=== PATIENT | male | born 1985 | race Caucasian/White ===

== ENCOUNTER 2018-06-04 02:49 | Emergency (ER) | payer SELFPAY ==
[2018-06-04 06:16] LABS: APPEARANCE,URINE CLEAR; BILIRUBIN,URINE NEGATIVE (NEGATIVE); COLOR,URINE YELLOW; GLUCOSE, URINE NEGATIVE (NEGATIVE); KETONES,URINE NEGATIVE (NEGATIVE); LEUKOCYTE ESTERASE,URINE TRACE (NEGATIVE); NITRITE,URINE NEGATIVE (NEGATIVE); PROTEIN,URINE NEGATIVE (NEGATIVE); URINE SPECIFIC GRAVITY 1.016; UROBILINOGEN,URINE NEGATIVE mg/dL (<2.0)
[2018-06-04 06:38] VITALS: BP 123/81
[2018-06-04] MEDS ORDERED: KETOROLAC TROMETHAMINE INJ/PF 30 MG/1 ML SDV IV ONE (08:30)
[2018-06-04] MEDS ORDERED: NORMAL SALINE 1000 ML 1,000 ML IV ONE (08:30)
--- NOTE | 2018-06-04 08:48 | ER Document Report ---
ED General <ANNA FREIRE - Last Filed: 06/04/18 09:53> - General Mode of Arrival: Ambulatory Information source: Patient TRAVEL OUTSIDE OF THE [place] IN LAST 30 DAYS: No <TIRSO KENNEDY - Last Filed: 06/04/18 10:32> - General Chief Complaint: Back Pain Stated Complaint: SIDE PAIN Time Seen by Provider: 06/04/18 08:10 Notes: 33-year-old male who presents to the emergency department today with complaints of 2-3 weeks of abdominal pain. Patient states 3 weeks ago he was diagnosed with diverticulitis at [facility] and put on Cipro and Flagyl. Patient states at that time he had left lower quadrant abdominal pain. Patient states 2 weeks ago he developed right lower quadrant abdominal pain and 2 days ago he developed left flank pain. Patient states after finishing his prescribed Cipro and Flagyl he saw his PCP who restarted the Cipro and Flagyl thinking that the initial dose did not get rid of the infection. Patient mentions he has a history of IBS. Patient denies any fevers. (TIRSO KENNEDY) - Related Data Allergies/Adverse Reactions: iodine [Iodine] Allergy (Severe, Verified 06/04/18 09:09) Blisters diphenhydramine HCl [From Benadryl] Allergy (Verified 06/04/18 09:09) RASH doxycycline [Doxycycline] Allergy (Verified 06/04/18 09:09) VOMITING Penicillins Allergy (Verified 06/04/18 09:09) "FEELS ITCHY" Sulfa (Sulfonamide Antibiotics) Allergy (Verified 06/04/18 09:09) Past Medical History - General Information source: Patient - Social History Smoking Status: Never Smoker Cigarette use (# per day): No Chew tobacco use (# tins/day): No Frequency of alcohol use: Rare Drug Abuse: None Lives with: Family Family History: Reviewed & Not Pertinent Patient has suicidal ideation: No Patient has homicidal ideation: No - Past Medical History Cardiac Medical History: Reports: Hx Atrial Fibrillation Neurological Medical History: Reports: Hx Migraine, Hx Seizures Renal/ Medical History: Reports: Hx Kidney Stones GI Medical History: Reports: Hx Ulcer Musculoskeletal Medical History: Reports Hx Arthritis Past Surgical History: Reports: Hx Genitourinary Surgery, Hx Urinary Tract Surgery - Immunizations Hx Diphtheria, Pertussis, Tetanus Vaccination: Yes <TIRSO KENNEDY - Last Filed: 06/04/18 10:32> Review of Systems - Review of Systems Constitutional: denies: Fever EENT: No symptoms reported Cardiovascular: No symptoms reported Respiratory: No symptoms reported Gastrointestinal: See HPI, Abdominal pain Genitourinary: See HPI, Flank pain Male Genitourinary: No symptoms reported Musculoskeletal: No symptoms reported Skin: No symptoms reported Hematologic/Lymphatic: No symptoms reported Neurological/Psychological: No symptoms reported -: Yes All other systems reviewed and negative <MARCIAALBERTOTIRSO - Last Filed: 06/04/18 10:32> Physical Exam <ANNA FREIRE - Last Filed: 06/04/18 09:53> <MARCIAALBERTOTIRSO - Last Filed: 06/04/18 10:32> - Vital signs Vitals: Temp Pulse BP Pulse Ox 97.9 F 74 131/85 H 95 06/04/18 03:04 06/04/18 03:04 06/04/18 03:04 06/04/18 03:04 - Notes Notes: Physical Exam: General: Alert, appears well. HEENT: Normocephalic. Atraumatic. PERRL. Extraocular movements intact. Oropharynx clear. Neck: Supple. Non-tender. Respiratory: No respiratory distress. Clear and equal breath sounds bilaterally. Cardiovascular: Regular rate and rhythm. Abdominal: Slight right lower quadrant and left lower quadrant tenderness with palpation.. No distension. Bowel Sounds consistent with IBS. Back: Left lumbar musculature and left flank musculature exquisite tenderness with palpation. No deformity or step off. Extremities: Moves all four extremities. Upper extremities: Normal inspection. Normal ROM. Lower extremities: Normal inspection. No edema. Normal ROM. Neurological: Normal cognition. AAOx4. Normal speech. Psychological: Normal affect. Normal Mood. Skin: Warm. Dry. Normal color. (TIRSO KNENEDY) Course - Laboratory Result Diagrams: 06/04/18 08:45 06/04/18 08:45 - Diagnostic Test Radiology reviewed: Image reviewed, Reports reviewed - Noncontrast CT scan of the abdomen and pelvis shows mid descending colon diverticulitis without abscess or free air. <ANNA FREIRE - Last Filed: 06/04/18 09:53> - Laboratory Result Diagrams: 06/04/18 08:45 06/04/18 08:45 <MARCIA,TIRSO - Last Filed: 06/04/18 10:32> - Vital Signs Vital signs: Temp Pulse Resp BP Pulse Ox 98.1 F 85 123/81 98 06/04/18 06:31 06/04/18 06:31 06/04/18 06:31 06/04/18 06:31 - Laboratory Laboratory results interpreted by me: 06/04/18 06/04/18 05:37 08:45 Sodium 146.5 H Ur Leukocyte Esterase TRACE H Discharge <ANNA FREIRE - Last Filed: 06/04/18 09:53> <MARCIATIRSO - Last Filed: 06/04/18 10:32> - Discharge Clinical Impression: Diverticulitis Condition: Stable Disposition: HOME, SELF-CARE Additional Instructions: Diverticulitis You have been diagnosed as having diverticulitis. This is an inflammation of a small pouch attached to the colon, called a diverticulum. Many of these small pouches can form on the colon as you get older. They are often caused by constipation. When inflamed or infected, symptoms arise -- usually abdominal pain, constipation or diarrhea, fever, and blood in the stool. Severe diverticulitis may require hospitalization. More mild cases are usually treated with antibiotics and clear liquid diet. As you improve, a diet low in residue (one which forms little stool) is prescribed. When you are better, you should eat a high-fiber diet. Stool softeners ( like Metamucil) are usually recommended. Call the doctor or go to the hospital if there is increasing pain, vomiting , high fever, large amounts of blood passed, or if bowel movements cease. Your CT scan showed 1 inflamed diverticulum in the mid descending colon on the left side. There is no abscess or free air. You should continue taking the Cipro and Flagyl that was most recently prescribed. Take Tylenol and ibuprofen for pain as needed. Follow-up with your doctor Friday for recheck and possible referral to the general surgeons. RETURN TO THE EMERGENCY ROOM IF ANY NEW OR WORSENING SYMPTOMS. Scribe Attestation: 06/04/18 08:48 I personally performed the services described in the documentation, reviewed and edited the documentation which was dictated to the scribe in my presence, and it accurately records my words and actions. (TIRSO KENNEDY) Scribe Documentation - Scribe Written by Scribe:: Carisa Jimenez, 06/04/2018 1031 acting as scribe for :: Merline <TIRSO KENNEDY - Last Filed: 06/04/18 10:32>
--- NOTE | 2018-06-04 09:19 | RADIOLOGY REPORT (SQ) ---
EXAM DESCRIPTION: CT LTD RENAL STONE PROTOCOL ON COMPLETED DATE/TIME: 06/04/2018 9:03 am REASON FOR STUDY: Recent diverticulitis,bilat pelvic pain,L flank pa COMPARISON: None. TECHNIQUE: CT scan of the abdomen and pelvis performed without intravenous or oral contrast. Images reviewed with lung, soft tissue, and bone windows. Reconstructed coronal and sagittal MPR images revi ewed. All images stored on PACS. All CT scanners at this facility use dose modulation, iterative reconstruction, and/or weight based d osing when appropriate to reduce radiation dose to as low as reasonably achievable (ALARA). [facility]: Dose Right [facility]: CareDose [facility]: Dose Right [facility]: Teradose 4D [facility]: [employer] RADIATION DOSE: CT Rad equipment meets quality standard of care and radiation dose reduction techniq ues were employed. CTDIvol: 6.7 mGy. DLP: 383 mGy-cm.mGy. LIMITATIONS: None. FINDINGS: Along the mid descending colon, there is a colonic diverticulum with surrounding inflammat ion in the paracolic fat from diverticulitis. No free air. No free fluid. No abscess. Findings we re discussed with Dr. Rick. Remainder of the gastrointestinal tract in the field of view is otherwise unremarkable. No gross bow el wall thickening on these non contrasted images. No dilated loops worrisome for obstruction. LOWER CHEST: No significant findings. No nodules or infiltrates. NON-CONTRASTED LIVER, SPLEEN, ADRENALS: Evaluation limited by lack of IV contrast. No identified sign ificant masses. 1.5 cm cyst in the inferior aspect of the spleen, benign. PANCREAS: No masses. No peripancreatic inflammatory changes. GALLBLADDER: No identified stones by CT criteria. No inflammatory changes to suggest cholecystitis. RIGHT KIDNEY AND URETER: No suspicious masses. Assessment limited by lack of IV contrast. No signif icant calcifications. No hydronephrosis or hydroureter. LEFT KIDNEY AND URETER: No suspicious masses. Assessment limited by lack of IV contrast. No signifi cant calcifications. No hydronephrosis or hydroureter. AORTA AND RETROPERITONEUM: No aneurysm. No retroperitoneal masses or adenopathy. BOWEL AND PERITONEAL CAVITY: As above APPENDIX: Normal. PELVIS, BLADDER, AND ABDOMINAL WALL:No abnormal masses. No free fluid. Bladder normal. BONES: No significant findings. OTHER: No other significant finding. IMPRESSION: Mild diverticular inflammation, mid descending colon. No abscess or free air. Findings discussed with the emergency room attending physician. COMMENT: Quality ID # [id number]: Final reports with documentation of one or more dose reduction techniques (e.g., Automated exposure control, adjustment of the mA and/or kV according to patient size, use of iterative reconstruction technique) TECHNICAL DOCUMENTATION: JOB ID: [id number] [employer]- All Rights Reserved Reading location - IP/workstation name: [email or web address] [email or web address]
[2018-06-04 09:33] LABS: ALANINE AMINOTRANSFERASE 70 U/L (21-72); ALBUMIN 4.4 g/dL (3.5-5.0); ALKALINE PHOSPHATASE 86 U/L (38-126); ANION GAP 13 (5-19); ASPARTATE AMINO TRANSFERASE 44 U/L (17-59); BILIRUBIN,DIRECT 0.2 mg/dL (0.0-0.4); BILIRUBIN,TOTAL 0.5 mg/dL (0.2-1.3); BLOOD UREA NITROGEN 11 mg/dL (7-20); CARBON DIOXIDE 30 mmol/L (22-30); CHLORIDE 104 mmol/L (98-107); CREATINE KINASE 87 U/L (55-170); GLUCOSE 99 mg/dL (75-110); POTASSIUM 4.3 mmol/L (3.6-5.0); SODIUM 146.5 mmol/L (137-145); TOTAL PROTEIN 8.2 g/dL (6.3-8.2)
[2018-06-04 09:43] LABS: ABSOLUTE EOSINOPHILS # (AUTO) 0.3 10^3/uL (0.0-0.6); ABSOLUTE LYMPHOCYTES (AUTO) 2.3 10^3/uL (0.5-4.7); ABSOLUTE MONOCYTES (AUTO) 0.5 10^3/uL (0.1-1.4); ABSOLUTE NEUT (AUTO) 4.3 10^3/uL (1.7-8.2); BASOPHILS % (AUTO) 0.4 % (0-2); EOSINOPHILS % (AUTO) 4.5 % (0-6); HEMATOCRIT 43.6 % (37.9-51.0); HEMOGLOBIN 14.9 g/dL (13.5-17.0); LYMPHOCYTES % (AUTO) 30.9 % (13-45); MEAN CORPUSCULAR HEMOGLOBIN 29.4 pg (27.0-33.4); MEAN CORPUSCULAR HGB CONC 34.3 g/dL (32.0-36.0); MEAN CORPUSCULAR VOLUME 86 fl (80-97); MONOCYTES % (AUTO) 7.1 % (3-13); PLATELET COUNT 210 10^3/uL (150-450); RED BLOOD COUNT 5.07 10^6/uL (4.35-5.55); RED CELL DISTRIBUTION WIDTH 12.9 % (11.5-14.0); SEGMENTED NEUTROPHILS % (AUTO) 57.1 % (42-78); TOTAL CELLS COUNTED % (AUTO) 100 %; WHITE BLOOD COUNT 7.5 10^3/uL (4.0-10.5)
== END 2018-06-04 10:04 | disposition home or self-care (01) ==
LOC: ER 02:49
DX: K57.92 Diverticulitis of intestine, part unspecified, without perforation or abscess without bleeding (principal); M54.9 Dorsalgia, unspecified; R10.9 Unspecified abdominal pain; I48.91 Unspecified atrial fibrillation; Z88.0 Allergy status to penicillin; Z88.2 Allergy status to sulfonamides; Z87.442 Personal history of urinary calculi
CPT/HCPCS: 99284; 96361; 96374; 82550; 85025; 80053; 81001; 76380; J1885; J7030

== ENCOUNTER 2020-01-07 07:55 | Day surgery (SDC) | payer MEDICAID ==
[~2020-01-07 07:55] MED LIST: LIDOCAINE 2% INJ-PF (20 MG/ML) 10 ML AMPUL ONE; PROPOFOL INJ 200 MG/20 ML VIAL IV ONE
[2020-01-07 10:59] VITALS: BP 112/68
--- NOTE | 2020-01-07 11:18 | Operative Report ---
Operative Report DATE OF SURGERY: 01/07/20 Operative Report: The risk, benefits and alternatives of the procedure including the risk of bleeding, perforation requiring surgery have been explained to the patient in detail and informed consent has been obtained. Patient is taken back to the endoscopy suite and placed in left, lateral decubital position. Timeout was called. Propofol medication is administered. Rectal examination is done which did not reveal any masses, tears or fissures. An Olympus videoscope was introduced into the patient's rectum. The scope was then carefully advanced all the way to the cecum. Cecum was identified by the usual anatomical landmarks including the ileocecal valve as well as the appendiceal office. Photodocumentation is obtained. Scope was then sequentially pulled back via the various segments of the colon including the ascending colon, back fracture, transverse colon, splenic flexure, descending colon and finally into the rectosigmoid portions of the colon. Retroflexion maneuver is performed. The risks benefits and alternatives of the procedure explained to the patient in detail and informed consent is obtained.A GIF Olympus video scope was inserted into the patient's mouth and hypopharynx, the esophagus is identified intubated and insufflated ,the scope was then advanced through the esophagus stomach and duodenum, retroflexion maneuver is done the esophagus stomach and first and second portions of the duodenum examined PREOPERATIVE DIAGNOSIS: Epigastric pain. History of previous diverticulitis POSTOPERATIVE DIAGNOSIS: Left side diverticulosis. Random biopsies taken on the right side of the colon. No diverticulitis noted. Internal hemorrhoids. Gastritis status post biopsy rule out Helicobacter pylori OPERATION: Colonoscopy with biopsy. EGD with biopsy SURGEON: JANET SKINNER ANESTHESIA: LMAC TISSUE REMOVED OR ALTERED: As noted above. COMPLICATIONS: None. ESTIMATED BLOOD LOSS: None. INTRAOPERATIVE FINDINGS: As noted above. PROCEDURE: Patient tolerated the procedure well. No immediate postprocedure complications are noted. Patient is discharged in good condition. Discharge date 01/07/2020. Discharge diet: Regular. Discharge activity: Regular. 2 to 3-week follow-up to discuss findings. Patient is instructed to call the office or proceed to the emergency room should there be any further problems or questions. Wait on the pathology.
== END 2020-01-07 10:55 | disposition home or self-care (01) ==
LOC: END 07:55
PROVIDERS: ATTEND Internal Medicine Gastroenterology
DX: K57.30 Diverticulosis of large intestine without perforation or abscess without bleeding (principal); K64.8 Other hemorrhoids; K29.50 Unspecified chronic gastritis without bleeding; I48.91 Unspecified atrial fibrillation; M79.7 Fibromyalgia; Z79.899 Other long term (current) drug therapy; G40.909 Epilepsy, unspecified, not intractable, without status epilepticus; Z88.1 Allergy status to other antibiotic agents; Z09 Encounter for follow-up examination after completed treatment for conditions other than malignant neoplasm; Z87.19 Personal history of other diseases of the digestive system; R06.02 Shortness of breath; D64.9 Anemia, unspecified
CPT/HCPCS: 43239; 45380; 88305 ×2; 00813; J2704; J3490; 813

== ENCOUNTER → 2020-01-21 | Outpatient (CLI) | payer MEDICAID ==
--- NOTE | 2020-01-21 16:03 | RADIOLOGY REPORT (SQ) ---
EXAM DESCRIPTION: U/S THYROID/SFT TISS HD NECK IMAGES COMPLETED DATE/TIME: 01/21/2020 3:13 pm REASON FOR STUDY: R22.1 LOCALIZED SWELLING, MASS AND LUMP, NECK R22.1 LOCALIZED SWELLING, MASS AND LUMP, NECK COMPARISON: None. TECHNIQUE: Dynamic and static whiteside-scale images acquired of the thyroid gland. Selected additional c olor/power Doppler images recorded. All images stored to PACS. LIMITATIONS: None. FINDINGS: RIGHT LOBE: The right lobe of the thyroid gland measures 4.6 x 1.9 x 1.7 cm, normal size. Homogeneous echotexture. No cystic or solid masses. LEFT LOBE: The left lobe of the thyroid gland measures 4.1 x 1.7 x 2.0 cm, normal size. Homogeneous echotexture. No cystic or solid masses. ISTHMUS: The isthmus measures 4.1 mm, normal size. Homogeneous echotexture. No cystic or solid mas ses. OTHER: No other significant finding. IMPRESSION: 1. Examination is unremarkable sonographically. TECHNICAL DOCUMENTATION: JOB ID: [id number] 2010 [employer]- All Rights Reserved Reading location - IP/workstation name: [email or web address]
== END ==
LOC: RAD 14:53
PROVIDERS: ATTEND Otolaryngology
DX: R22.1 Localized swelling, mass and lump, neck (principal)
CPT/HCPCS: 76536

== ENCOUNTER 2020-02-04 09:08 | Emergency (ER) | payer MEDICAID ==
--- NOTE | 2020-02-04 09:50 | EKG REPORT ---
SEVERITY:- NORMAL ECG - SINUS RHYTHM : Confirmed by: Suma Ramirez MD 04-Feb-2020 09:49:53
[2020-02-04] MEDS ORDERED: NORMAL SALINE 1000 ML 1,000 ML IV ONE (09:52)
--- NOTE | 2020-02-04 09:54 | ER Document Report ---
ED GI/ - General Chief Complaint: Abdominal Pain Stated Complaint: RIGHT LOWER ABDOMINAL PAIN Time Seen by Provider: 02/04/20 09:46 Primary Care Provider: NANCY SY MD [Primary Care Provider] - Follow up tomorrow Mode of Arrival: Ambulatory Information source: Patient Notes: Patient presents complaining of right lower quadrant abdominal pain off and on f or the past week that worsened today. Patient denies any nausea or vomiting. Patient does report chronic diarrhea. Patient states he has had some urinary frequency but this is a chronic issue for him as well. Patient reports fever at home of 99.2. TRAVEL OUTSIDE OF THE [place] IN LAST 30 DAYS: No - HPI Patient complains to provider of: Abdominal pain, Diarrhea. No: Vomiting Onset: Last week Timing/Duration: Worse Quality of pain: Achy Severity at maximum: Mild Severity in ED: None Location: RLQ Associated symptoms: Diarrhea, Urinary frequency. denies: Nausea, Urinary hesitancy, Urinary retention, Urinary urgency, Vomiting Exacerbated by: Movement Relieved by: Denies Similar symptoms previously: No Recently seen / treated by doctor: No - Related Data Allergies/Adverse Reactions: povidone-iodine [From Betadine] Allergy (Intermediate, Verified 01/07/20 08:09) ITCHY soap [From Betadine] Allergy (Intermediate, Verified 01/07/20 08:09) ITCHY diphenhydramine HCl [From Benadryl] Allergy (Verified 01/06/20 11:03) RASH doxycycline [Doxycycline] Allergy (Verified 01/06/20 11:03) VOMITING Sulfa (Sulfonamide Antibiotics) Allergy (Verified 01/06/20 11:03) NAUSEA/ VOMITING, STOMACH CRAMPS, ITCHY Home Medications: Nexium, naproxen, Cyclobenaprine, Levatiracetam, Oxypoweder, Amitriptyline Past Medical History - General Information source: Patient - Social History Smoking Status: Never Smoker Frequency of alcohol use: None Drug Abuse: None Occupation: none Family History: Reviewed & Not Pertinent Patient has suicidal ideation: No Patient has homicidal ideation: No - Past Medical History Cardiac Medical History: Reports: Hx Atrial Fibrillation Pulmonary Medical History: Denies: Hx Asthma, Hx Bronchitis, Hx COPD, Hx Pneumonia Neurological Medical History: Reports: Hx Migraine, Hx Seizures. Denies: Hx Cerebrovascular Accident Renal/ Medical History: Reports: Hx Kidney Stones. Denies: Hx Peritoneal Dialysis GI Medical History: Reports: Hx Ulcer Musculoskeletal Medical History: Reports Hx Arthritis Past Surgical History: Reports: Hx Genitourinary Surgery, Hx Urinary Tract Surgery - Immunizations Hx Diphtheria, Pertussis, Tetanus Vaccination: Yes Review of Systems - Review of Systems Constitutional: Fever - Low-grade 99.2. denies: Recent illness EENT: No symptoms reported Cardiovascular: No symptoms reported. denies: Chest pain Respiratory: No symptoms reported Gastrointestinal: Abdominal pain, Diarrhea. denies: Nausea, Vomiting Genitourinary: Frequency. denies: Dysuria, Flank pain, Hematuria Male Genitourinary: No symptoms reported Musculoskeletal: No symptoms reported. denies: Back pain Skin: No symptoms reported Hematologic/Lymphatic: No symptoms reported Neurological/Psychological: No symptoms reported Physical Exam - Vital signs Vitals: Temp Pulse Resp BP Pulse Ox 97.6 F 68 20 132/92 H 99 02/04/20 09:13 02/04/20 09:13 02/04/20 09:13 02/04/20 09:13 02/04/20 09:13 - General General appearance: Appears well, Alert In distress: None - HEENT Head: Normocephalic, Atraumatic Eyes: Normal Conjunctiva: Normal Nasal: Normal Mouth/Lips: Normal Mucous membranes: Normal Pharynx: Normal Neck: Normal, Supple - Respiratory Respiratory status: No respiratory distress Chest status: Nontender Breath sounds: Normal. No: Rales, Rhonchi, Stridor, Wheezing Chest palpation: Normal - Cardiovascular Rhythm: Regular Heart sounds: S1 appreciated, S2 appreciated - Abdominal Inspection: Normal Distension: No distension Bowel sounds: Normal Tenderness: Tender, McBurney's point. No: Villa's sign, Guarding Organomegaly: No organomegaly - Back Back: Normal, Nontender. No: CVA tenderness - Extremities General upper extremity: Normal inspection, Normal strength General lower extremity: Normal inspection, Normal strength - Neurological Neuro grossly intact: Yes Cognition: Normal Maida Coma Scale Eye Opening: Spontaneous Fontana Coma Scale Verbal: Oriented Maida Coma Scale Motor: Obeys Commands Fontana Coma Scale Total: 15 - Psychological Associated symptoms: Normal affect, Normal mood - Skin Skin Temperature: Warm Skin Moisture: Dry Skin Color: Normal Course - Re-evaluation Re-evalutation: 02/04/20 12:38 Patient reports very minimal abdominal tenderness. Patient states that he does have problems with constipation and that his pain worsens whenever he takes medicine to help have bowel movements. Patient reports pain symptoms have been off and on for the past week. Patient without any fever, leukocytosis or vomiting. Appendix was not able to be visualized on CT scan although no infla mmatory findings were noted either. Consulted with Dr. Peter regarding patient presentation, exam findings and diagnostic evaluation. Does not recommend any additional testing at this time. Recommends good return precautions and advises discharge with symptomatic treatment. Discussed plan of care with patient, patient states that pain is very minimal at this time and he is agreeable with this plan. Good return precautions were discussed. Patient presents with abdominal pain without signs of peritonitis or other life-threatening or serious etiology. Patient appears stable for discharge and has been instructed to return immediately if the symptoms worsen in any way. - Vital Signs Vital signs: Temp Pulse Resp BP Pulse Ox 97.8 F 77 16 118/83 99 02/04/20 12:51 02/04/20 12:51 02/04/20 12:51 02/04/20 12:51 02/04/20 12:51 - Laboratory Result Diagrams: 02/04/20 09:43 02/04/20 09:43 Laboratory results interpreted by me: 02/04/20 09:43 ALT 55 H Labs- Entire Visit 02/04/20 02/04/20 02/04/20 09:43 09:43 11:04 WBC 6.6 RBC 4.90 Hgb 14.8 Hct 42.5 MCV 87 MCH 30.2 MCHC 34.8 RDW 12.7 Plt Count 214 Lymph % (Auto) 34.3 Saunders % (Auto) 7.4 Eos % (Auto) 5.5 Baso % (Auto) 0.5 Absolute Neuts (auto) 3.5 Absolute Lymphs (auto) 2.3 Absolute Monos (auto) 0.5 Absolute Eos (auto) 0.4 Absolute Basos (auto) 0.0 Seg Neutrophils % 52.3 Sodium 139.6 Potassium 4.0 Chloride 104 Carbon Dioxide 28 Anion Gap 8 BUN 13 Creatinine 0.97 Est GFR ( Amer) > 60 Est GFR (MDRD) Non-Af > 60 Glucose 100 Calcium 9.0 Total Bilirubin 0.4 Direct Bilirubin 0.2 Neonat Total Bilirubin Not Reportable Neonat Direct Bilirubin Not Reportable Neonat Indirect Bili Not Reportable AST 34 ALT 55 H Alkaline Phosphatase 86 Total Protein 7.9 Albumin 4.4 Urine Color STRAW Urine Appearance CLEAR Urine pH 5.0 Ur Specific [place] 1.053 Urine Protein NEGATIVE Urine Glucose (UA) NEGATIVE Urine Ketones NEGATIVE Urine Blood NEGATIVE Urine Nitrite NEGATIVE Urine Bilirubin NEGATIVE Urine Urobilinogen NEGATIVE Ur Leukocyte Esterase NEGATIVE Urine WBC (Auto) 0 Urine RBC (Auto) 0 Urine Mucus (Auto) RARE Urine Ascorbic Acid NEGATIVE - Diagnostic Test Radiology reviewed: Reports reviewed Discharge - Discharge Clinical Impression: Abdominal pain Qualifiers: Abdominal location: unspecified location Qualified Code(s): R10.9 - Unspecified abdominal pain Condition: Stable Disposition: HOME, SELF-CARE Instructions: Abdominal Pain ([facility]), Antispasmodics ([facility]) Additional Instructions: Return immediately for any new or worsening symptoms: Fever, vomiting, worsening pain, lack of improvement or any concerning new symptoms Followup with your primary care provider, call tomorrow to make a followup appointment Prescriptions: Dicyclomine HCl [Bentyl 20 mg Tablet] 20 mg PO QID PRN #12 tablet PRN Reason: Polyethylene Glycol 3350 [Miralax] 17 gm PO DAILY #119 powder Referrals: NANCY SY MD [Primary Care Provider] - Follow up tomorrow
[2020-02-04 10:00] LABS: ABSOLUTE EOSINOPHILS # (AUTO) 0.4 10^3/uL (0.0-0.6); ABSOLUTE LYMPHOCYTES (AUTO) 2.3 10^3/uL (0.5-4.7); ABSOLUTE MONOCYTES (AUTO) 0.5 10^3/uL (0.1-1.4); ABSOLUTE NEUT (AUTO) 3.5 10^3/uL (1.7-8.2); BASOPHILS % (AUTO) 0.5 % (0-2); EOSINOPHILS % (AUTO) 5.5 % (0-6); HEMATOCRIT 42.5 % (37.9-51.0); HEMOGLOBIN 14.8 g/dL (13.5-17.0); LYMPHOCYTES % (AUTO) 34.3 % (13-45); MEAN CORPUSCULAR HEMOGLOBIN 30.2 pg (27.0-33.4); MEAN CORPUSCULAR HGB CONC 34.8 g/dL (32.0-36.0); MEAN CORPUSCULAR VOLUME 87 fl (80-97); MONOCYTES % (AUTO) 7.4 % (3-13); PLATELET COUNT 214 10^3/uL (150-450); RED CELL DISTRIBUTION WIDTH 12.7 % (11.5-14.0); SEGMENTED NEUTROPHILS % (AUTO) 52.3 % (42-78); TOTAL CELLS COUNTED % (AUTO) 100 %; WHITE BLOOD COUNT 6.6 10^3/uL (4.0-10.5)
[2020-02-04 10:40] LABS: ALBUMIN 4.4 g/dL (3.5-5.0); ALKALINE PHOSPHATASE 86 U/L (38-126); ANION GAP 8 (5-19); ASPARTATE AMINO TRANSFERASE 34 U/L (17-59); BILIRUBIN,DIRECT 0.2 mg/dL (0.0-0.4); BILIRUBIN,TOTAL 0.4 mg/dL (0.2-1.3); BLOOD UREA NITROGEN 13 mg/dL (7-20); CARBON DIOXIDE 28 mmol/L (22-30); CHLORIDE 104 mmol/L (98-107); GLUCOSE 100 mg/dL (75-110); TOTAL PROTEIN 7.9 g/dL (6.3-8.2)
--- NOTE | 2020-02-04 10:59 | RADIOLOGY REPORT (SQ) ---
EXAM DESCRIPTION: CT ABD/PELVIS WITH IV ONLY IMAGES COMPLETED DATE/TIME: 02/04/2020 10:39 am REASON FOR STUDY: RLQ pain COMPARISON: 06/04/2018. TECHNIQUE: CT scan of the abdomen and pelvis performed using helical scanning technique with dynamic intravenous contrast injection. No oral contrast. Images reviewed with lung, soft tissue, and bone windows. Reconstructed coronal and sagittal MPR images reviewed. Delayed images for evaluation of the urinary system also acquired. All images stored on PACS. All CT scanners at this facility use dose modulation, iterative reconstruction, and/or weight based d osing when appropriate to reduce radiation dose to as low as reasonably achievable (ALARA). [facility]: Dose Right [facility]: CareDose [facility]: Dose Right [facility]: Teradose 4D [facility]: [employer] CONTRAST TYPE AND DOSE: contrast/concentration: Isovue 350.00 mg/ml; Total Contrast Delivered: 78.0 ml; Total Saline Delivered: 70.0 ml RENAL FUNCTION: None required. The patient is less than 50 years old. RADIATION DOSE: CT Rad equipment meets quality standard of care and radiation dose reduction techniq ues were employed. CTDIvol: 5.7 - 7.8 mGy. DLP: 786 mGy-cm.. LIMITATIONS: None. FINDINGS: LOWER CHEST: No significant findings. No nodules or infiltrates. LIVER: Normal size. No masses. No dilated ducts. SPLEEN: Normal size. No focal lesions. PANCREAS: No masses. No significant calcifications. No adjacent inflammation or peripancreatic fluid collections. Pancreatic duct not dilated. GALLBLADDER: No identified stones by CT criteria. No inflammatory changes to suggest cholecystitis. ADRENAL GLANDS: No significant masses or asymmetry. RIGHT KIDNEY AND URETER: No solid masses. No significant calcifications. No hydronephrosis or hyd roureter. LEFT KIDNEY AND URETER: No solid masses. No significant calcifications. No hydronephrosis or hydr oureter. AORTA AND VESSELS: No aneurysm. No dissection. Renal arteries, SMA, celiac without stenosis. RETROPERITONEUM: No retroperitoneal adenopathy, hemorrhage or masses. BOWEL AND PERITONEAL CAVITY: Diverticuli in the descending and sigmoid colon. No masses or inflammat ory changes. No free fluid or peritoneal masses. APPENDIX: Not visualized. PELVIS: No mass. No free fluid. Normal bladder. ABDOMINAL WALL: No masses. No hernias. BONES: No significant or acute findings. OTHER: No other significant finding. IMPRESSION: COLONIC DIVERTICULOSIS. NO CT FINDINGS OF DIVERTICULITIS. NO OTHER SIGNIFICANT OR ACUT E FINDING IN THE ABDOMEN OR PELVIS ON CT SCAN WITH IV CONTRAST. THE APPENDIX IS NOT VISUALIZED BUT T HERE ARE NO INFLAMMATORY CHANGES IN THE RIGHT LOWER QUADRANT. TECHNICAL DOCUMENTATION: JOB ID: [id number] Quality ID # [id number]: Final reports with documentation of one or more dose reduction techniques (e.g., Au tomated exposure control, adjustment of the mA and/or kV according to patient size, use of iterative reconstruction technique) 2010 [employer]- All Rights Reserved Reading location - IP/workstation name: [email or web address]
[2020-02-04 11:21] LABS: APPEARANCE,URINE CLEAR; BILIRUBIN,URINE NEGATIVE (NEGATIVE); COLOR,URINE STRAW; GLUCOSE, URINE NEGATIVE (NEGATIVE); KETONES,URINE NEGATIVE (NEGATIVE); LEUKOCYTE ESTERASE,URINE NEGATIVE (NEGATIVE); NITRITE,URINE NEGATIVE (NEGATIVE); PROTEIN,URINE NEGATIVE (NEGATIVE); URINE SPECIFIC GRAVITY 1.053; UROBILINOGEN,URINE NEGATIVE mg/dL (<2.0)
[2020-02-04 12:53] VITALS: BP 118/83
== END 2020-02-04 12:51 | disposition home or self-care (01) ==
LOC: ER 09:08
DX: R10.31 Right lower quadrant pain (principal); R19.7 Diarrhea, unspecified; R50.9 Fever, unspecified; I48.91 Unspecified atrial fibrillation; Z88.2 Allergy status to sulfonamides; Z87.442 Personal history of urinary calculi
CPT/HCPCS: 93005; 99284; 96360; 36415; 85025; 80053; 81001; 74177; 93010; J7030

== ENCOUNTER 2020-10-02 09:56 | Emergency (ER) | payer MEDICAID ==
--- NOTE | 2020-10-02 12:43 | ER Document Report ---
ED ENT - General Chief Complaint: Sore Throat Stated Complaint: COUGH,THROAT/JAW PAIN Time Seen by Provider: 10/02/20 11:16 Primary Care Provider: NANCY SY MD [Primary Care Provider] - Follow up as needed TRAVEL OUTSIDE OF THE [place] IN LAST 30 DAYS: No - HPI Notes: 35-year-old patient presents to ED for evaluation of sore throat for the last 2 days. Was found to be Covid positive on 09/27. Patient reports an increased amount of cough, muscle aches, and fatigue. Patient reports pressure to bilateral ears. Reports pain with swallowing, however denies any difficulties breathing or handling secretions. Denies any productive cough. Denies any ear pain, fevers, chills, nausea, vomiting, chest pain, shortness of breath, neck pain or rash. Denies loss of taste or s jackson. That the discomfort is worse on the left side of the throat and into the left ear. - Related Data Allergies/Adverse Reactions: povidone-iodine [From Betadine] Allergy (Intermediate, Verified 01/07/20 08:09) ITCHY soap [From Betadine] Allergy (Intermediate, Verified 01/07/20 08:09) ITCHY diphenhydramine HCl [From Benadryl] Allergy (Verified 01/06/20 11:03) RASH doxycycline [Doxycycline] Allergy (Verified 01/06/20 11:03) VOMITING Sulfa (Sulfonamide Antibiotics) Allergy (Verified 01/06/20 11:03) NAUSEA/ VOMITING, STOMACH CRAMPS, ITCHY Past Medical History - Social History Smoking Status: Never Smoker Family History: Reviewed & Not Pertinent - Past Medical History Cardiac Medical History: Reports: Hx Atrial Fibrillation Denies: Hx Coronary Artery Disease, Hx Heart Attack, Hx Hypertension Pulmonary Medical History: Denies: Hx Asthma, Hx Bronchitis, Hx COPD, Hx Pneumonia Neurological Medical History: Reports: Hx Migraine, Hx Seizures. Denies: Hx Cerebrovascular Accident Renal/ Medical History: Reports: Hx Kidney Stones. Denies: Hx Peritoneal Dialysis GI Medical History: Reports: Hx Ulcer Musculoskeletal Medical History: Reports Hx Arthritis Past Surgical History: Reports: Hx Genitourinary Surgery, Hx Urinary Tract Surgery - Immunizations Hx Diphtheria, Pertussis, Tetanus Vaccination: Yes Review of Systems - Review of Systems Notes: Constitutional: Negative for fever. HENT: + for sore throat. Eyes: Negative for visual changes. Cardiovascular: Negative for chest pain. Respiratory: Negative for shortness of breath. Gastrointestinal: Negative for abdominal pain, vomiting or diarrhea. Genitourinary: Negative for dysuria. Musculoskeletal: Negative for back pain. Skin: Negative for rash. Neurological: Negative for headaches, weakness or numbness. 10 point ROS negative except as marked above and in HPI. Physical Exam - Vital signs Vitals: Temp Pulse Resp BP Pulse Ox 98.1 F 98 18 112/80 97 10/02/20 10:09 10/02/20 10:09 10/02/20 10:09 10/02/20 10:09 10/02/20 10:09 General: No acute distress. Alert and oriented x3. Sitting comfortably in a stretcher. Skin: No jaundice, pallor, petechiae, or rashes. Warm and dry. HEENT: Normocephalic, atraumatic. Pupils are equal round reactive to light and accommodation. Extraocular movements are intact. TMs without erythema with bulging L>R with erythema to the left. Canals are clear. Nares patent with discharge. Teeth in good condition. Pharynx with erythema without edema, or exudates. Mucous membranes moist. No tonsillar enlargement. Uvula is midline. Airway is patent. Neck: Supple with no lymphadenopathy. Full range of motion. Heart: Regular rate and rhythm. S1,S2. No murmurs, rubs, or gallops. Lungs: Clear to auscultation bilaterally. No wheezes, rhonchi, rales. Equal chest expansion. No retractions. Neuro: GCS 15. Moving all extremities without discomfort. Course - Re-evaluation Re-evalutation: 10/02/20 20:06 35-year-old male presents to ED for evaluation of increased sore throat and ear pain while he is Covid positive. Patient has had worsening symptoms over the last several days. On physical exam, patient does have erythema and edema to the left ear. Patient also reports sore throat. There is mild erythema and edema to the pharynx. Patient was evaluated with influenza and strep testing. Influenza testing is negative and strep testing is unremarkable. Culture is pending. Patient is advised that we will treat him symptomatically with a course of antibiotics. Patient then divulge that he has been taking 2 days of Cleocin. Advised patient I will switch him to Augmentin as he may not be sens itive to the Cleocin however he should follow-up closely with primary care to determine if ENT services were necessary. Patient is advised to remain at home on isolation as he is Covid positive. Patient is also encouraged to drink plenty of fluids and to use anti-inflammatory medications as necessary. Understands these indications and is agreeable with this plan of care. - Vital Signs Vital signs: Temp Pulse Resp BP Pulse Ox 98.4 F 95 18 110/82 98 10/02/20 13:17 10/02/20 13:17 10/02/20 13:17 10/02/20 13:17 10/02/20 13:17 Discharge - Discharge Clinical Impression: COVID-19 Otitis media Qualifiers: Otitis media type: suppurative Chronicity: acute Laterality: left Recurrence: non-recurrent Spontaneous tympanic membrane rupture: without spontaneous rupture Qualified Code(s): H66.002 - Acute suppurative otitis media without spontaneous rupture of ear drum, left ear Condition: Stable Disposition: HOME, SELF-CARE Instructions: COVID-19 Guidance for Persons Under Investigation, Sore Throat ([facility]) Prescriptions: Amoxicillin/Potassium Clav [Augmentin 875-125 Tablet] 1 tab PO Q12 #14 tablet Referrals: NANCY SY MD [Primary Care Provider] - Follow up as needed
[2020-10-02 13:18] VITALS: BP 110/82
== END 2020-10-02 13:17 | disposition home or self-care (01) ==
LOC: ER 09:56
DX: U07.1 COVID-19 (principal); H66.002 Acute suppurative otitis media without spontaneous rupture of ear drum, left ear; I48.91 Unspecified atrial fibrillation; Z87.442 Personal history of urinary calculi; Z88.2 Allergy status to sulfonamides
CPT/HCPCS: 87070; 87880; 99283